=== PATIENT | female | born 1955 | race Caucasian/White ===

== ENCOUNTER 2019-12-06 11:45 | Inpatient (IN) | payer OTHER ==
[~2019-12-06] VITALS: Ht 157.5 cm; Wt 61.7 kg
[2019-12-17] MEDS ORDERED: INTESTINEX680 M1 PO (09:13)
[2019-12-17] MEDS ORDERED: OXYC1TAB9 PO (09:14)
[2019-12-17] MEDS ORDERED: LEVAQUIN500 MG PO (09:14)
== END 2019-12-17 11:05 | disposition home or self-care (01) | DRG 331 ==
LOC: O/R 12-13 09:50 → SURH 12-13 09:50 → O/R 12-14 11:45 → SURH 12-14 14:30
PROVIDERS: ADMIT Colon & Rectal Surgery
PROC: 0DBN4ZZ Excision of Sigmoid Colon, Percutaneous Endoscopic Approach (ICD-10-PCS; 2019-12-13)
PROC: 3E0F7GC Introduction of Other Therapeutic Substance into Respiratory Tract, Via Natural or Artificial Opening (ICD-10-PCS; 2019-12-13)
PROC: 0DBP4ZZ Excision of Rectum, Percutaneous Endoscopic Approach (ICD-10-PCS; principal; 2019-12-13 11:45)
DX: K57.20 Diverticulitis of large intestine with perforation and abscess without bleeding (principal); J45.20 Mild intermittent asthma, uncomplicated

== ENCOUNTER → 2019-12-09 | Day surgery (SDC) | payer OTHER | END | disposition home or self-care (01) | LOC: AMB-ENDOS 08:22 | DX: K57.20 Diverticulitis of large intestine with perforation and abscess without bleeding (principal); K57.30 Diverticulosis of large intestine without perforation or abscess without bleeding; K64.1 Second degree hemorrhoids ==

== ENCOUNTER 2020-12-21 09:10 | Day surgery (SDC) | payer OTHER ==
[~2020-12-21 09:10] MED LIST: INTESTINEX680 M1 PO; LEVAQUIN500 MG PO; OXYC1TAB9 PO
== END 2020-12-21 18:15 | disposition home or self-care (01) ==
LOC: AMB-ENDOS 09:10
PROVIDERS: ATTEND Colon & Rectal Surgery
DX: D12.2 Benign neoplasm of ascending colon (principal); D12.4 Benign neoplasm of descending colon; K64.1 Second degree hemorrhoids; Z20.822 Contact with and (suspected) exposure to COVID-19